=== PATIENT | male | born 1950 | race Hispanic/Latino ===

== ENCOUNTER 2021-06-21 08:24 | Emergency (ER) | payer OTHER, MEDICARE ==
[~2021-06-21] VITALS: Ht 165.1 cm; Wt 72.6 kg
[2021-06-21 08:59] LABS: APPEARANCE,URINE SL CLOUDY (CLEAR); BILIRUBIN,URINE NEGATIVE (NEGATIVE); COLOR,URINE YELLOW (YELLOW); GLUCOSE, URINE (UA) NEGATIVE (NEGATIVE); KETONES,URINE NEGATIVE (NEGATIVE); LEUKOCYTE ESTERASE ,URINE LARGE (NEGATIVE); NITRATE,URINE NEGATIVE (NEGATIVE); OCCULT BLOOD,URINE LARGE (NEGATIVE); PROTEIN,URINE 100 mg/dL (NEGATIVE)
[2021-06-21 09:07] LABS: BACTERIA,URINE Few /HPF (None Seen); MUCUS,URINE Few LPF (None Seen); RBC,URINE 26-50 /HPF (0-1); SQUAMOUS EPITHELIAL CELL,UR 0-2 /HPF (0-2); WBC,URINE TNTC /HPF (0-1)
[2021-06-21] MEDS ORDERED: NAPR-1196 PO (09:12)
[2021-06-21] MEDS ORDERED: CEPH500B PO (09:12)
[2021-06-21] MEDS ORDERED: KETOROLAC 15MG/ML VIAL (15MG/ML) IV SCH (09:30)
[2021-06-21] MEDS ORDERED: CEFTRIAXONE 1G VIAL IVP SCH (09:30)
[2021-06-21 09:44] VITALS: BP 133/74
== END 2021-06-21 09:36 | disposition home or self-care (01) ==
LOC: EDH 08:24
DX: N39.0 Urinary tract infection, site not specified (principal); N40.0 Benign prostatic hyperplasia without lower urinary tract symptoms; N45.1 Epididymitis; I10 Essential (primary) hypertension; Z79.1 Long term (current) use of non-steroidal anti-inflammatories (NSAID)
CPT/HCPCS: 81001; 87077; 87088; 87186; 96374; 96375; 99284; J0696; J1885

== ENCOUNTER 2023-11-16 06:36 | Emergency (ER) | payer OTHER, MEDICARE ==
[~2023-11-16] VITALS: Ht 165.1 cm; Wt 73.5 kg
[~2023-11-16 06:36] MED LIST: CEPH500B PO; NAPR-1196 PO
[2023-11-16 06:59] LABS: APPEARANCE,URINE CLOUDY (CLEAR); BILIRUBIN,URINE NEGATIVE (NEGATIVE); COLOR,URINE YELLOW (YELLOW); GLUCOSE, URINE (UA) NEGATIVE (NEGATIVE); KETONES,URINE NEGATIVE (NEGATIVE); LEUKOCYTE ESTERASE ,URINE 500 Leu/uL (NEGATIVE); NITRATE,URINE NEGATIVE (NEGATIVE); OCCULT BLOOD,URINE LARGE (NEGATIVE); PROTEIN,URINE 10 mg/dL (NEGATIVE); UROBILINOGEN,URINE 0.2 mg/dL (0.2-1.0)
[2023-11-16 07:18] LABS: ADD UA MICROSCOPIC YES
[2023-11-16 07:27] LABS: BACTERIA,URINE FEW /HPF (None Seen); MUCUS,URINE RARE LPF (None Seen); RBC,URINE >100 /HPF (0-1); SQUAMOUS EPITHELIAL CELL,UR RARE /HPF (0-2); TRANSITIONAL EPI CELLS,URINE RARE /HPF (None Seen); UNCLASSIFIED CRYSTAL 33 /HPF (None Seen); WBC CLUMP MANY /HPF (0-1); WBC,URINE TNTC /HPF (0-1)
[2023-11-16 08:07] LABS: BASOPHILS # (AUTO) 0.03 K/uL (0.00-0.20); BASOPHILS % (AUTO) 0.5 % (0.0-5.0); EOSINOPHILS # (AUTO) 0.24 K/uL (0.00-0.70); EOSINOPHILS % (AUTO) 3.9 % (0.0-8.0); IMMATURE GRANULOCYTE ABSOLUTE 0.02 K/uL (0-1); LYMPHOCYTES # (AUTO) 1.2 K/uL (1.0-4.8); LYMPHOCYTES % (AUTO) 19.1 % (21.0-51.0); MEAN CORPUSCULAR HEMOGLOBIN 29.4 pg (27.0-33.0); MEAN CORPUSCULAR VOLUME 86.6 fL (79-99); MONOCYTES # (AUTO) 0.4 K/uL (0.1-1.0); MONOCYTES % (AUTO) 6.4 % (3.0-13.0); NEUTROPHILS # (AUTO) 4.3 K/uL (1.8-7.7); NEUTROPHILS % (AUTO) 69.8 % (40.0-77.0); PLATELET COUNT (AUTO) 195 K/uL (130-400); RED BLOOD CELL COUNT(AUTO) 4.62 MIL/uL (4.50-6.20); RED CELL DISTRIBUTION WIDTH 12.6 % (11.0-15.5); WHITE BLOOD COUNT (AUTO) 6.1 K/uL (4.8-10.8)
[2023-11-16] MEDS: CEFTRIAXONE 1G VIAL IVPB ONE (08:16)
[2023-11-16 08:24] LABS: CREATININE 0.9 mg/dL (0.5-1.3); POTASSIUM 4.3 mmol/L (3.5-5.1)
[2023-11-16] MEDS ORDERED: MACR100 PO (08:47)
[2023-11-16 09:45] VITALS: BP 133/67; PULSE 79; RESP 18; O2SAT 99
== END 2023-11-16 09:49 | disposition home or self-care (01) ==
LOC: EDH 06:36
DX: N39.0 Urinary tract infection, site not specified (principal); I10 Essential (primary) hypertension; E78.00 Pure hypercholesterolemia, unspecified; Z79.899 Other long term (current) drug therapy
CPT/HCPCS: 99284; 96365; 80048; 85025; 87086 ×2; 87186; 81001; 36415; J0696

== ENCOUNTER 2024-10-15 06:35 | Emergency (ER) | payer OTHER, MEDICARE ==
[~2024-10-15] VITALS: Ht 165.1 cm; Wt 73.5 kg
[~2024-10-15 06:35] MED LIST changes: +MACR100 PO
--- NOTE | 2024-10-15 06:51 | ERN ---
General Chief Complaint: Urinary Retention Stated Complaint: URINARY RETENTION Time Seen by MD: 06:42 Source: patient History of Present Illness Initial Comments PATIENT IS A 74-YEAR-OLD MALE COMING IN TO BE EVALUATED FOR DYSURIA URINE RETENTION. THE PATIENT IS A PAIN FINE ALL NIGHT FOLLOW UP WITH SOME THIS MORNING HE STARTED HAVING SOME DISCOMFORT BURNING WITH PAIN WELL UNABLE TO COMPLETELY VOID. NO FEVER OR CHILLS. Allergies: Coded Allergies: No Known Drug Allergies (Unverified Allergy, Unknown, 06/21/21) Home Meds Active Scripts Cefpodoxime Proxetil (Cefpodoxime Proxetil) 200 Mg Tablet, 200 MG PO BID for 7 Days, #14 TAB Prov:AMI RIVERA DO 10/15/24 Nitrofurantoin/Nitrofuran Mac (Macrobid) 100 Mg Cap, 1 CAP PO BID for 7 Days, #14 CAP 0 Refills Prov:ANUJ SHCRADER MD 11/16/23 Cephalexin Monohydrate (Keflex) 500 Mg Cap, 500 MG PO BID for 7 Days, #14 CAP Prov:MUNDO SWIFT MD 06/21/21 Naproxen (Naproxen) 250 Mg Tablet, 250 MG PO BID for 15 Days, #30 TAB Prov:MUNDO SWIFT MD 06/21/21 Past Medical History Past Medical History: High Cholesterol, Hypertension, Prostatitis Past Surgical History: None Social History Social History: Negative, Lives with family ROS Dictation CONSTITUTIONAL: NO CHILLS, NO FEVER, NO WEAKNESS, NO DIAPHORESIS, NO MALAISE. HEAD/FACE: NO SIGNS OF TRAUMA. EENT: NO EYE PAIN, NO BLURRED VISION, NO TEARING, NO DOUBLE VISION, NO EAR PAIN, NO EAR DISCHARGE, NO NOSE PAIN, NO NASAL CONGESTION, NO THROAT PAIN, NO THROAT SWELLING, NO MOUTH PAIN. RESPIRATORY: NO COUGH, NO ORTHOPNEA, NO SOB, NO STRIDOR, NO WHEEZING. CARDIOVASCULAR: NO CHEST PAIN, NO EDEMA, NO PALPITATIONS, NO SYNCOPE. GASTROINTESTINAL/ABDOMINAL: NO ABDOMINAL PAIN, NO CONSTIPATION, NO DIARRHEA, NO NAUSEA, NO VOMITING. GENITOURINARY: NO ABNORMAL DISCHARGE, DYSURIA, NO FREQUENT URINATION, NO HEMATURIA.COMPLAINTS OF PAIN IN THE GENITALS. MUSCULOSKELETAL: NO BACK PAIN, NO GOUT, NO JOINT PAIN, NO JOINT SWELLING, NO MUSCLE PAIN, NO MUSCLE STIFFNESS, NO NECK PAIN. INTEGUMENTARY: NO CHANGE IN COLOR, NO CHANGE IN HAIR/NAILS, NO DRYNESS, NO LESION, NO LUMPS, NO RASH. NEUROLOGICAL/PSYCH: NO ANXIETY, NOT DEPRESSED, NO EMOTIONAL PROBLEM, NO HEADACHE, NO NUMBNESS, NO PRE-EXISTING DEFICIT, NO HISTORY OF SEIZURES, NO TREMORS, NO WEAKNESS. HEMATOLOGIC/LYMPHATIC: NOT ANEMIC, NO HISTORY OF BLOOD CLOTS, NO APPARENT BLEEDING, NO BRUISING, GLANDS NOT SWOLLEN. ALL SYSTEMS NEGATIVE, EXCEPT NOTED. Physical Exam Physical Exam Dictation VITAL SIGNS: REVIEWED. GENERAL APPEARANCE: ALERT, ORIENTED X3, NO ACUTE DISTRESS, OBESE. HEAD AND FACE: NON-TRAUMATIC. EYES: PERRL, PINK CONJUNCTIVAS, EYELID NO TRAUMA, ANTERIOR CHAMBER CLEAR. EARS: PINNAS INTACT AND NO SIGNS OF TRAUMA OR ERYTHEMA. EAR CANALS CLEAR AND NO DISCHARGE. TMS NO ERYTHEMA. NOSE: NO DISCHARGE, NO BLEEDING. OROPHARYNX: MOUTH NORMAL, TEETH NO CARIES, TONGUE PINK. PHARYNX CLEAR, NO ERYTHEMA. TONSILS NO EXUDATES, NO ABSCESSES NOTED. MUCOUS MEMBRANE MOIST. NECK: SUPPLE, NON-TENDER, NO THYROMEGALY, NO MASSES, NO JVD, NO BRUITS. BREAST: DEFERRED. CHEST: NO TENDERNESS, NO CREPITUS, NO PARADOXICAL MOVEMENT, NO RETRACTIONS. LUNGS: CLEAR, WELL-VENTILATED, SYMMETRIC, NO RALES, NO WHEEZING, NO RHONCHI, NO STRIDOR, GOOD BREATH SOUNDS BILATERALLY. HEART: REGULAR RATE, REGULAR RHYTHM, NO MURMUR, NO GALLOPS. VASCULAR: NO PERIPHERAL EDEMA. ABDOMEN: SOFT, POSITIVE BOWEL SOUNDS, NONDISTENDED, NO GUARDING, NONTENDER, NO REBOUND, NO MASSES NO HEPATOMEGALY, NO SPLENOMEGALY, NO BRITTON'S SIGN, NO HERNIAS. RECTAL: DEFERRED. GENITAL: DEFERRED. NEUROLOGICAL: NORMAL SPEECH, GROSS MOTOR FUNCTION INTACT, GROSS SENSORY FUNCTION INTACT. MUSCULOSKELETAL: NECK NONTENDER, FULL RANGE OF MOTION, BACK NONTENDER, FULL RANGE OF MOTION. EXTREMITIES: NONTENDER, FULL RANGE OF MOTION. SKIN: COLOR PINK, DRY, NO TURGOR, NO RASH, NO LACERATIONS, NO ABRASIONS, NO CONTUSIONS. LYMPHATICS: DEFERRED. Results Laboratory and Microbiology Lab and Micro Result Laboratory Tests Test 10/15/24 06:53 10/15/24 07:20 Urine Color YELLOW (YELLOW) Urine Appearance CLOUDY (CLEAR) H Urine pH 6.0 (5.0-8.0) Urine Specific [place] 1.020 (1.001-1.031) Urine Protein 10 mg/dL (NEGATIVE) H Urine Glucose (UA) NEGATIVE mg/dL (NEGATIVE) Urine Ketones NEGATIVE mg/dL (NEGATIVE) Urine Occult Blood MODERATE (NEGATIVE) H Urine Nitrate NEGATIVE (NEGATIVE) Urine Bilirubin NEGATIVE mg/dL (NEGATIVE) Urine Urobilinogen 0.2 mg/dL (0.2-1.0) Urine Leukocyte Esterase 500 Octavio/uL (NEGATIVE) H Urine RBC 26-50 /HPF (0-1) H Urine WBC TNTC /HPF (0-1) H Urine Squamous Epithelial Cells RARE /HPF (0-2) Urine Non-Squamous Epithelial Cells 1 /HPF (0-2) Urine Bacteria None /HPF (None Seen) White Blood Count 10.8 K/uL (4.8-10.8) Red Blood Count 4.25 MIL/uL (4.50-6.20) L Hemoglobin 12.7 g/dL (14.0-18.0) L Hematocrit 37.7 % (42-54) L Mean Corpuscular Volume 88.7 fL (79-99) Mean Corpuscular Hemoglobin 29.9 pg (27.0-33.0) Mean Corpuscular Hemoglobin Concent 33.7 g/dL (32.0-36.0) Red Cell Distribution Width 12.1 % (11.0-15.5) Platelet Count 176 K/uL (130-400) Mean Platelet Volume 8.2 fL (7.5-10.5) Immature Granulocyte % (Auto) 0.7 % (0-1) Neutrophils (%) (Auto) 84.0 % (40.0-77.0) H Lymphocytes (%) (Auto) 8.3 % (21.0-51.0) L Monocytes (%) (Auto) 5.4 % (3.0-13.0) Eosinophils (%) (Auto) 1.2 % (0.0-8.0) Basophils (%) (Auto) 0.4 % (0.0-5.0) Neutrophils # (Auto) 9.1 K/uL (1.8-7.7) H Lymphocytes # (Auto) 0.9 K/uL (1.0-4.8) L Monocytes # (Auto) 0.6 K/uL (0.1-1.0) Eosinophils # (Auto) 0.13 K/uL (0.00-0.70) Basophils # (Auto) 0.04 K/uL (0.00-0.20) Absolute Immature Granulocyte (auto 0.08 K/uL (0-1) Nucleated Red Blood Cells 0.0 % (0.0-0.19) White Cell Morphology Comment See comments Sodium Level 137 mmol/L (136-145) Potassium Level 3.9 mmol/L (3.5-5.1) Chloride Level 102 mmol/L (101-111) Carbon Dioxide Level 26 mmol/L (21-32) Blood Urea Nitrogen 11 mg/dL (7-18) Creatinine 0.9 mg/dL (0.5-1.3) Glomerular Filtration Rate Calc 90 mL/min (>90) Random Glucose 115 mg/dL (70-105) H Total Calcium 8.6 mg/dL (8.5-10.1) MDM MDM: DIFFERENTIAL DIAGNOSIS: UTI, URINARY RETENTION, RATIONALE: TESTS CONSIDERED AND ORDERED SECONDARY TO SHARED DECISION MAKING INCLUDE: PREVIOUS OUTSIDE RECORDS REVIEWED: OLD ER VISITS. RISK OF COMPLICATION AND/OR MORBIDITY OR MORTALITY OF PATIENT MANAGEMENT: NONE MEDICATIONS-PER MEDICATION RECONCILIATION NEED FOR HOSPITALIZATION: PATIENT DOES NOT MEET CRITERIA FOR HOSPITALIZATION. NEED FOR EMERGENCY MAJOR/MINOR SURGERY: NO PATIENT IS A 74-YEAR-OLD MALE COMING IN TO BE EVALUATED FOR DYSURIA AND AN DECREASE VOIDING CC: Urinary retention dysuria Historian: Patient Comorbidities: Dyslipidemia, hypertension, prostate issues. Differential diagnosis includes UTI, urinary retention, BPH, prostatitis, other. Vital signs: Mild hypertension otherwise unremarkable. Remained stable in the ER. Labs show no leukocytosis, WBCs 10.8 K, 85% neutrophils. No bands. Chemistry normal. Urinalysis consistent with infection. Treatment in ED: 1 L lactated Ringer's, Bethany and Toradol for pain, 1 g of Rocephin. Patient did not have retention. After a L of fluid the patient was able to urinate. Postvoid residual check was unremarkable. Patient feels well. No signs of SIRS sepsis or toxicity. The reason for the prolonged stay in the ER as we are waiting for the patient to drink plenty of liquids in order to ensure that he was able to urinate and not have any post void residual. This is not a problem. Patient will be discharged home. He agrees with the plan. ED Course Orders Procedure Category Date Status Time Cbc With Differential LAB 10/15/24 Complete 06:46 Basic Metabolic Panel LAB 10/15/24 Complete 06:46 Urinalysis LAB 10/15/24 Complete W/Microscopic 06:46 Culture Urine ESTELA 10/15/24 In Process 07:06 Ceftriaxone 1g Vial PHA 10/15/24 Complete (Rocephine 1g Inj) 08:30 Lactated Ringers PHA 10/15/24 Complete 1000ml (Lactated 09:00 Ketorolac PHA 10/15/24 Complete Tromethamine 15mg/Ml 09:00 Hydrocodone/Apap PHA 10/15/24 Complete 5/325 (Beth[place] 5/325mg) 09:00 Current Medications Medications (Trade) Dose Ordered Sig/Ewa Route PRN Reason Start Time Stop Time Status Last Admin Dose Admin Acetaminophen/ Hydrocodone Bitart (NORco 5/325MG) 1 tab ONCE ONCE PO 10/15/24 09:00 10/15/24 09:08 DC Ceftriaxone Sodium (ROCEphine 1G INJ) 1 gm ONCE ONCE IVPB 10/15/24 08:30 10/15/24 08:31 DC 10/15/24 08:25 Ketorolac Tromethamine (toRADol) 15 mg ONCE ONCE IM 10/15/24 09:00 10/15/24 09:08 DC 10/15/24 09:15 Lactated Ringer's 1,000 ml @ 0 mls/hr ONCE ONCE IV 10/15/24 09:00 10/15/24 09:01 DC 10/15/24 09:07 Vital Signs Date Time Temp Pulse Resp B/P (MAP) Pulse Ox O2 Delivery O2 Flow Rate FiO2 10/15/24 12:31 98.4 74 19 167/77 100 Room Air* 0 10/15/24 11:37 98.8 81 19 169/78 99 Room Air* 0 21 10/15/24 09:50 98.2 72 17 146/65 98 Room Air* 0 10/15/24 07:34 98.8 88 19 146/70 98 Room Air* 0 21 10/15/24 06:51 97.9 89 16 153/72 98 Room Air 0 DX & DISP Disposition: Discharge Departure Impression: Primary Impression: UTI (urinary tract infection) Condition: Stable Scripts Cefpodoxime Proxetil (Cefpodoxime Proxetil) 200 Mg Tablet 200 MG PO BID for 7 Days, #14 TAB Prov: AMI RIVERA DO 10/15/24 Additional Instructions: Your symptoms are consistent with a urinary tract infection. Your blood work is unremarkable. Your urinalysis shows bacteria. Continue taking your prostate medication. I have prescribed cefpodoxime, which is an antibiotic. Please take as prescribed. Follow up with your primary doctor later this week for re-evaluation. Referrals: YESSENIA PAULSON (PCP) KRIS PATTON MD October 15, 2024 06:51 AMI RIVERA DO October 15, 2024 12:15
[2024-10-15 07:04] LABS: APPEARANCE,URINE CLOUDY (CLEAR); BILIRUBIN,URINE NEGATIVE (NEGATIVE); COLOR,URINE YELLOW (YELLOW); GLUCOSE, URINE (UA) NEGATIVE (NEGATIVE); KETONES,URINE NEGATIVE (NEGATIVE); LEUKOCYTE ESTERASE ,URINE 500 Leu/uL (NEGATIVE); NITRATE,URINE NEGATIVE (NEGATIVE); OCCULT BLOOD,URINE MODERATE (NEGATIVE); PROTEIN,URINE 10 mg/dL (NEGATIVE); UROBILINOGEN,URINE 0.2 mg/dL (0.2-1.0)
[2024-10-15 07:12] LABS: NON-SQUAMOUS EPITHELIAL CELL 1 /HPF (0-2); RBC,URINE 26-50 /HPF (0-1); SQUAMOUS EPITHELIAL CELL,UR RARE /HPF (0-2); WBC,URINE TNTC /HPF (0-1)
--- NOTE | 2024-10-15 07:23 | NUR ---
ASSUMED PATIENT CARE AT THIS TIME
[2024-10-15 07:28] LABS: BASOPHILS # (AUTO) 0.04 K/uL (0.00-0.20); BASOPHILS % (AUTO) 0.4 % (0.0-5.0); EOSINOPHILS # (AUTO) 0.13 K/uL (0.00-0.70); EOSINOPHILS % (AUTO) 1.2 % (0.0-8.0); HEMATOCRIT 37.7 % (42-54); IMMATURE GRANULOCYTE ABSOLUTE 0.08 K/uL (0-1); LYMPHOCYTES # (AUTO) 0.9 K/uL (1.0-4.8); LYMPHOCYTES % (AUTO) 8.3 % (21.0-51.0); MEAN CORPUSCULAR HEMOGLOBIN 29.9 pg (27.0-33.0); MEAN CORPUSCULAR HGB CONC 33.7 g/dL (32.0-36.0); MEAN CORPUSCULAR VOLUME 88.7 fL (79-99); MONOCYTES # (AUTO) 0.6 K/uL (0.1-1.0); MONOCYTES % (AUTO) 5.4 % (3.0-13.0); NEUTROPHILS # (AUTO) 9.1 K/uL (1.8-7.7); PLATELET COUNT (AUTO) 176 K/uL (130-400); RED BLOOD CELL COUNT(AUTO) 4.25 MIL/uL (4.50-6.20); RED CELL DISTRIBUTION WIDTH 12.1 % (11.0-15.5); WHITE BLOOD COUNT (AUTO) 10.8 K/uL (4.8-10.8)
[2024-10-15 07:42] LABS: CREATININE 0.9 mg/dL (0.5-1.3); POTASSIUM 3.9 mmol/L (3.5-5.1)
[2024-10-15] MEDS: cefTRIAXone 1G VIAL IVPB ONE (08:25)
[2024-10-15] MEDS: LACTATED RINGERS 1000ML 1,000 ML IV ONE (09:07)
[2024-10-15] MEDS: ketOROlac 15MG/ML VIAL (15MG/ML) IM ONE (09:15)
[2024-10-15] MEDS: HYDROcodone/APAP 5/325 1 TAB TABLET PO ONE (10:27)
--- NOTE | 2024-10-15 10:41 | NUR ---
PATIENT STATES HE DOES NOT HAVE HOME MEDS WITH HIM AT THIS TIME
[2024-10-15] MEDS ORDERED: CEFP200T14 PO (12:10)
[2024-10-15 12:31] VITALS: BP 167/77; PULSE 74; RESP 19; TEMP 98.4; O2SAT 100
--- NOTE | 2024-10-15 12:39 | NUR ---
DC PATIENT WAS DC'D BY DR. RIVERA, I DC'D PATIENTS IV WITH CATH STILL IN PLACE AND APPLIED 2X2 GAUZE WITH TAPE, I EXPLAINED TO PATIENT TO FOLLOW UP WITH PCP, EXPLAINED NEW PRESCRIPTIONS AND PROVIDED INFO BASED ON DIAGNOSIS ANSWERED ALL PATIENTS QUESTIONS, PATIENT AMBULATED OUT OF ED, ACCOMPANIED BY , NO COMPLICATIONS
== END 2024-10-15 12:38 | disposition home or self-care (01) ==
LOC: EDH 06:35
DX: N39.0 Urinary tract infection, site not specified (principal); I10 Essential (primary) hypertension; E78.00 Pure hypercholesterolemia, unspecified; Z79.899 Other long term (current) drug therapy
CPT/HCPCS: 99284; 96374; 96361; 80048; 85025; 87086 ×2; 87186; 81001; 36415; 96372; J1885; J7120; J0696